=== PATIENT | male | born 1990 | race Two or more races ===

== ENCOUNTER 2019-12-03 10:49 | Emergency (ER) | payer SELFPAY ==
[2019-12-03] MEDS ORDERED: Fluorescein 1 MG Ophth Strip EYERT ONE (11:20)
[2019-12-03] MEDS ORDERED: Proparacaine 0.5% Ophth Soln 15 ML Bottle EYERT ONE (11:21)
--- NOTE | 2019-12-03 11:28 | EDM.PDOC ---
ED HPI GENERAL MEDICAL PROBLEM - General Chief Complaint: Eye Problems Stated Complaint: RT EYE PAIN Time Seen by Provider: 12/03/19 11:20 Source of Information: Reports: Patient, RN Notes Reviewed History Limitations: Reports: No Limitations - History of Present Illness INITIAL COMMENTS - FREE TEXT/NARRATIVE: Patient is a 29-year-old male who presents to the ED for the evaluation of his right eye irritation. Patient notes that this has been going on for around 2 weeks or so. 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 Patient states that he has not been able to open his eye fully, due to the irritation and pain. He states that there were some bumps on his lower eyelid that were there before the irritation started, he notes that the eye is very itchy, getting clear drainage, and the eye [place], is and painful due to this, he would rate this at 8 out of 10. Patient states that he supposed wear glasses but does not. He states that his vision is mildly blurry, but can see commonly fingers I am holding up at the end of the bed with not a lot of difficulty. Patient denies any other symptoms like facial pain, hearing issues, headache, fever/chills, nausea/vomiting/diarrhea, chest pain/cough/shortness of breath. He further denies any past medical history. - Related Data Home Meds: Home Meds Ketorolac [Acular 0.5% Ophth Soln] 1 drop OP Q6H PRN #1 bottle 12/03/19 [Rx] Past Medical History - Past Health History Medical/Surgical History: Denies Medical/Surgical History Social & Family History - Tobacco Use Smoking Status *Q: Never Smoker - Caffeine Use Caffeine Use: Reports: Energy Drinks - Alcohol Use Alcohol Use History: No - Recreational Drug Use Recreational Drug Use: Yes Drug Use in Last 12 Months: Yes Recreational Drug Type: Reports: Marijuana/Hashish - Living Situation & Occupation Occupation: Employed (work at [employer]) ED ROS GENERAL - Review of Systems Review Of Systems: See Below Constitutional: Denies: Fever, Chills HEENT: Reports: Eye Discharge (clear discharge from right eye), Eye Pain, Vision Change (slight blurred vision). Denies: Ear Discharge, Ear Pain Respiratory: Denies: Shortness of Breath, Cough Cardiovascular: Denies: Chest Pain GI/Abdominal: Denies: Diarrhea, Nausea, Vomiting Skin: Denies: Erythema (or swelling) Neurological: Denies: Headache ED EXAM GENERAL W FULL EYE - Physical Exam Exam: See Below Exam Limited By: No Limitations General Appearance: Alert, WD/WN, No Apparent Distress (pt is sitting with right eye squinted shut) Eye Exam: Bilateral Eye: EOMI, Normal Inspection, PERRL Eyelids: Bilateral: Normal Appearance Conjunctiva & Sclera: Right: Injected, Left: Normal Appearance Cornea Exam: Right: Corneal Abrasion (noted to lower left quadrant of right eye) , Examined with Flourescein, Left: Normal Appearance Extraocular Movements: Bilateral: Intact Pupils: Normal Accommodation Pupillary Size: Bilateral: 3 mm Pupillary Reaction: Bilateral: Brisk Head: Atraumatic, Normocephalic Respiratory/Chest: No Respiratory Distress, Lungs Clear, Normal Breath Sounds, No Accessory Muscle Use, Chest Non-Tender Cardiovascular: Normal Peripheral Pulses, Regular Rate, Rhythm, No Murmur Extremities: Normal Inspection, Normal Capillary Refill Neurological: Alert, Oriented, Normal Cognition, No Motor/Sensory Deficits Psychiatric: Normal Affect, Normal Mood Skin Exam: Warm, Dry, Intact, Normal Color, No Rash Course - Orders/Labs/Meds Meds: Medications Discontinued Medications Generic Name Dose Route Start Last Admin Trade Name Oliva PRN Reason Stop Dose Admin Erythromycin 1 gm 12/03/19 11:38 Erythromycin 0.5% Ophth Oint EYERT 12/03/19 11:39 ONETIME ONE Fluorescein Sodium 1 mg 12/03/19 11:20 Ful-Faviola EYERT 12/03/19 11:21 ONETIME ONE Proparacaine HCl 1 ml 12/03/19 11:21 Proparacaine 0.5% Ophth Soln EYERT 12/03/19 11:22 ONETIME ONE - Re-Assessments/Exams Free Text/Narrative Re-Assessment/Exam: 12/03/19 11:28 Patient presents to the ED for a painful/irritated right eye. The eye will be examined with fluorescein after some proparacaine has been instilled. Departure - Departure Time of Disposition: 11:44 Disposition: Home, Self-Care 01 Condition: Good Clinical Impression: Corneal abrasion Qualifiers: Encounter type: initial encounter Laterality: right Qualified Code(s): S05.01XA - Injury of conjunctiva and corneal abrasion without foreign body, right eye, initial encounter - Discharge Information *PRESCRIPTION DRUG MONITORING PROGRAM REVIEWED*: No *COPY OF PRESCRIPTION DRUG MONITORING REPORT IN PATIENT KRISH: No Prescriptions: Ketorolac [Acular 0.5% Ophth Soln] 1 drop OP Q6H PRN #1 bottle PRN Reason: Pain Instructions: Corneal Abrasion, [id number] Referrals: PCP,None [Primary Care Provider] - Forms: ED Department Discharge Additional Instructions: You have been evaluated in the ED today for a foreign body sensation in your eye. You were identified to have a corneal abrasion to the right eye. You were given some pain drops for your eye, ketorolac, please instill 2 drops to the affected eye every 6 hours at least for the next 24 hours. You may use this up to 2-3 days if needed. Please use the erythromycin ointment, 1 cm ribbon to the lower affected eyelid margin 4 times daily for the next 3-5 days. Recommend that you follow up with optometry [facility] for a more thorough evaluation and to make sure that everything is healing appropriately. You will have to call around and schedule yourself an appointment with the next available provider if you do not already have a current eye doctor. Please return to the ED if your symptoms should change or worsen.
[2019-12-03] MEDS ORDERED: Erythromycin Base 0.5% Ophth Oint 1 GM Tube EYERT ONE (11:38)
== END 2019-12-03 12:12 | disposition home or self-care (01) ==
LOC: JD.ED 10:49
DX: S05.01XA Injury of conjunctiva and corneal abrasion without foreign body, right eye, initial encounter (principal); X58.XXXA Exposure to other specified factors, initial encounter
CPT/HCPCS: 99283; A9270

== ENCOUNTER 2023-02-13 16:47 | Emergency (ER) | payer OTHER ==
[2023-02-13] MEDS ORDERED: Diphtheria,Pertussis(Acell),Tetanus Vaccine 0.5 ML Syringe IM ONE (17:06)
== END 2023-02-13 18:11 | disposition home or self-care (01) ==
LOC: JD.ED 16:47
DX: S68.011A Complete traumatic metacarpophalangeal amputation of right thumb, initial encounter (principal); Z23 Encounter for immunization; W26.8XXA Contact with other sharp object(s), not elsewhere classified, initial encounter
CPT/HCPCS: 73140-26-F5; 73140-F5; 90471; 90715; 99283-25